=== PATIENT | male | born 1955 | race Caucasian/White ===

== ENCOUNTER 2024-04-30 20:22 | Inpatient (IN) | payer MEDICARE ==
[~2024-04-30] VITALS: Ht 167.6 cm; Wt 59.9 kg
[2024-04-30] MEDS ORDERED: methylPREDNISolone SOD SUCC 125 MG/2ML VIAL ONE (20:34)
[2024-04-30] MEDS ORDERED: FUROSEMIDE 40 MG/4 ML VIAL ONE (20:34)
[2024-04-30] MEDS ORDERED: IPRATROPIUM NEB FS 0.5 MG/2.5 ML AMPUL.NEB ONE (20:41)
[2024-04-30] MEDS ORDERED: ALBUTEROL FS 2.5 MG/3 ML VIAL.NEB ONE (20:41)
[2024-04-30 20:43] LABS: BASOPHILS # (AUTO) 0.1 K/uL (0.0-0.2); BASOPHILS % (AUTO) 0.5 % (0.0-2.0); EOSINOPHILS # (AUTO) 0.3 K/uL (0.0-0.7); EOSINOPHILS % (AUTO) 1.7 % (0.0-6.0); HEMATOCRIT 41 % (39-51); HEMOGLOBIN 13.3 g/dL (13.5-17.5); LYMPHOCYTES # (AUTO) 4.9 K/uL (0.8-4.8); LYMPHOCYTES % (AUTO) 28.1 % (20.0-44.0); MEAN CORPUSCULAR HEMOGLOBIN 30 PG (26.0-33.0); MEAN CORPUSCULAR HGB CONC 33 g/dl (31.0-36.0); MEAN CORPUSCULAR VOLUME 93 fL (80-96); MONOCYTES # (AUTO) 1.4 K/uL (0.1-1.30); MONOCYTES % (AUTO) 8.2 % (2.0-12.0); NEUTROPHILS # (AUTO) 10.7 K/uL (1.8-8.9); NEUTROPHILS % (AUTO) 61.5 % (43.0-81.0); PLATELET COUNT (AUTO) 261 K/uL (150-450); RED BLOOD CELL COUNT(AUTO) 4.38 MIL/uL (4.5-6.0); RED CELL DISTRIBUTION WIDTH 17.6 % (11.5-15.0); WHITE BLOOD COUNT (AUTO) 17.4 K/uL (4.3-11.0)
[2024-04-30] MEDS: ALBUTEROL FS 2.5 MG/3 ML VIAL.NEB CONTNEB ONE (20:48)
[2024-04-30] MEDS: IPRATROPIUM NEB FS 0.5 MG/2.5 ML AMPUL.NEB NEB ONE (20:48)
[2024-04-30] MEDS: methylPREDNISolone SOD SUCC 125 MG/2ML VIAL IV ONE (20:49)
[2024-04-30] MEDS: FUROSEMIDE 40 MG/4 ML VIAL IV ONE (20:50)
[2024-04-30 21:00] LABS: ALANINE AMINOTRANSFERASE 84 U/L (12-78); ALBUMIN 3.6 g/dL (3.4-5.0); ALKALINE PHOSPHATASE 158 U/L (46-116); ASPARTATE AMINOTRANSFERASE 45 U/L (15-37); BILIRUBIN,DIRECT 0.1 mg/dL (0.0-0.2); BILIRUBIN,TOTAL 0.4 mg/dL (0.2-1.0); CALCIUM, SERUM 9.7 mg/dL (8.5-10.1); CARBON DIOXIDE 29 mmol/L (21-32); CHLORIDE 101 mmol/L (98-107); CREATININE 1.1 mg/dL (0.6-1.3); GLUCOSE 147 mg/dL (74-106); POTASSIUM 4.7 mmol/L (3.5-5.1); SODIUM SERUM 137 mmol/L (136-145); TOTAL PROTEIN, SERUM 8.4 g/dL (6.4-8.2); UREA NITROGEN, BLOOD 16 mg/dL (7-18)
[2024-04-30] MEDS ORDERED: PROPOFOL 20 ML IV ONE (21:14)
[2024-04-30] MEDS: PROPOFOL 200 MG/20 ML VIAL IV ONE (21:26)
[2024-04-30] MEDS ORDERED: PIPERACI/TAZO 3.375GM/D5W 50ML PB IV ONE (21:41)
[2024-04-30] MEDS: PIPERACILLIN /TAZOBACTAM 3.375 G in IV D5W 50 ML IV ONE (21:45)
[2024-04-30 21:47] LABS: ABG BASE EXCESS -1.8 mmol/L (-2.0-3.0); ABG OXYGEN SATURATION 99.5 % (94.0-98.0); ABG PCO2 45.8 mmHg (35.0-48.0); ABG PH 7.341 (7.350-7.450); ABG PO2 406.4 mmHg (83.0-108.0); ABG TOTAL HEMOGLOBIN 13.1 G/dL (13.5-17.5); COHb 0.6 % (0.5-1.5); MetHb 0.1 % (0.0-1.5); O2Hb 98.8 % (94.0-97.0); SITE, ABG RIGHT RADIAL
[2024-04-30] MEDS ORDERED: FURO-144 PO (22:29)
[2024-04-30] MEDS ORDERED: MIDO5TAB4 PO (22:29)
[2024-04-30] MEDS ORDERED: CLOP75TA15 PO (22:29)
[2024-04-30] MEDS ORDERED: ASPI-1169 PO (22:29)
[2024-04-30] MEDS ORDERED: ROSU20TA2 PO (22:29)
[2024-04-30] MEDS ORDERED: TEMAZEPAM 15 MG CAPSULE PO PRN (22:30)
[2024-04-30] MEDS ORDERED: Z GUARD REMEDY 4 OZ OINT TP PRN (22:30)
[2024-04-30] MEDS ORDERED: ONDANSETRON HCL/PF 4 MG/2 ML VIAL IVP PRN (22:30)
[2024-04-30] MEDS ORDERED: IPRATROPIUM NEB FS 0.5 MG/2.5 ML AMPUL.NEB NEB PRN (22:30)
[2024-04-30] MEDS ORDERED: ALBUTEROL FS 2.5 MG/3 ML VIAL.NEB NEB PRN (22:30)
[2024-04-30] MEDS ORDERED: HYDROCODONE/APAP 5/325MG TABLET PO PRN (22:30)
[2024-04-30] MEDS ORDERED: MAG HYDROX/AL HYDROX/SIMETH 30 ML UDC PO PRN (22:30)
[2024-05-01] VITALS (9 sets, daily range): BP systolic 92–122; BP diastolic 62–80; TEMP 97.3–98.4; O2SAT 95–100
[2024-05-01] MEDS: methylPREDNISolone SOD SUCC 40 MG/ML VIAL IV SCH (05:22)
[2024-05-01 05:34] LABS: BASOPHILS % (AUTO) 0.1 % (0.0-2.0); CALCIUM, SERUM 9.3 mg/dL (8.5-10.1); EOSINOPHILS % (AUTO) 0.1 % (0.0-6.0); HEMATOCRIT 37 % (39-51); HEMOGLOBIN 12.4 g/dL (13.5-17.5); LYMPHOCYTES # (AUTO) 0.8 K/uL (0.8-4.8); LYMPHOCYTES % (AUTO) 11.3 % (20.0-44.0); MAGNESIUM 2.1 mg/dL (1.8-2.4); MEAN CORPUSCULAR HEMOGLOBIN 31 PG (26.0-33.0); MEAN CORPUSCULAR HGB CONC 34 g/dl (31.0-36.0); MEAN CORPUSCULAR VOLUME 92 fL (80-96); MONOCYTES # (AUTO) 0.1 K/uL (0.1-1.30); MONOCYTES % (AUTO) 1.2 % (2.0-12.0); NEUTROPHILS # (AUTO) 5.9 K/uL (1.8-8.9); NEUTROPHILS % (AUTO) 87.3 % (43.0-81.0); PHOSPHORUS 4.6 mg/dL (2.5-4.9); PLATELET COUNT (AUTO) 199 K/uL (150-450); POTASSIUM 3.8 mmol/L (3.5-5.1); RED BLOOD CELL COUNT(AUTO) 4.03 MIL/uL (4.5-6.0); RED CELL DISTRIBUTION WIDTH 16.7 % (11.5-15.0); WHITE BLOOD COUNT (AUTO) 6.8 K/uL (4.3-11.0)
[2024-05-01] MEDS: PANTOPRAZOLE 40 MG TABLET.DR PO SCH (08:22)
[2024-05-01] MEDS: ATORVASTATIN 40 MG TABLET PO SCH (08:22)
[2024-05-01] MEDS: FUROSEMIDE 40 MG TABLET PO SCH (08:22)
[2024-05-01] MEDS: MIDODRINE HCL (5MG) 5 MG TABLET PO SCH (08:22)
[2024-05-01] MEDS: CLOPIDOGREL BISULFATE 75 MG TABLET PO SCH (08:22)
[2024-05-01] MEDS: CEFEPIME 2 GM in IV D5W 100 ML IV SCH (08:23)
[2024-05-01] MEDS ORDERED: CEFEPIME 1 GM in IV D5W 50 ML IV SCH (09:00)
[2024-05-01] MEDS: ASPIRIN 81 MG TAB.CHEW PO SCH (21:26)
[2024-05-02] VITALS: BP 103/69; TEMP 98.4; O2SAT 97
[2024-05-02 04:00] VITALS: BP 96/61; TEMP 98.2; O2SAT 93
[2024-05-02 08:00] VITALS: BP 110/66; TEMP 97.9; O2SAT 97
[2024-05-02 12:00] VITALS: BP 106/66; TEMP 97.5; O2SAT 98
[2024-05-02 16:00] VITALS: BP 100/72; TEMP 98.2; O2SAT 98
[2024-05-02] MEDS: MAGNESIUM HYDROXIDE 30 ML UDC PO PRN (18:37)
[2024-05-02 20:00] VITALS: BP 118/79; TEMP 97.5; O2SAT 96
[2024-05-03] VITALS: BP 124/79; TEMP 97.9; O2SAT 99
[2024-05-03 04:00] VITALS: BP 109/62; TEMP 98.1; O2SAT 96
[2024-05-03 08:00] VITALS: BP 125/71; TEMP 97.6; O2SAT 99
[2024-05-03 12:00] VITALS: BP 120/65; TEMP 97.8; O2SAT 99
[2024-05-03 16:00] VITALS: BP 98/65; TEMP 97.8; O2SAT 97
[2024-05-03 20:00] VITALS: BP 120/76; TEMP 97.9; O2SAT 97
[2024-05-03] MEDS: TEMAZEPAM 15 MG CAPSULE PO PRN (22:24)
[2024-05-04] VITALS: BP 112/75; TEMP 97.7; O2SAT 97
[2024-05-04 04:00] VITALS: BP 125/79; TEMP 97.5; O2SAT 100
[2024-05-04 08:00] VITALS: BP 120/63; TEMP 98.3; O2SAT 97
[2024-05-04 12:00] VITALS: BP 124/66; TEMP 98.5; O2SAT 98
[2024-05-04 16:00] VITALS: BP 123/87; TEMP 98.6; O2SAT 96
[2024-05-04 20:00] VITALS: BP 115/75; TEMP 97.3; O2SAT 96
[2024-05-05] VITALS: BP 116/79; TEMP 97.3; O2SAT 96
[2024-05-05 04:00] VITALS: BP 133/78; TEMP 98.1
[2024-05-05 08:00] VITALS: BP 144/84; TEMP 98.1; O2SAT 97
[2024-05-05 12:00] VITALS: BP 132/76; TEMP 97.7; O2SAT 97
[2024-05-05 16:00] VITALS: BP 128/80; TEMP 97.7; O2SAT 96
[2024-05-05 20:00] VITALS: BP 133/80; TEMP 97.7; O2SAT 99
[2024-05-06] VITALS: BP 138/81; TEMP 97.7; O2SAT 96
[2024-05-06 04:00] VITALS: BP 136/86; TEMP 97.7; O2SAT 96
[2024-05-06 08:00] VITALS: BP 139/89; TEMP 97.5; O2SAT 96
[2024-05-06 12:00] VITALS: BP 118/78; TEMP 97.5; O2SAT 97
[2024-05-06 16:00] VITALS: BP 131/86; TEMP 97.5; O2SAT 97
[2024-05-06 20:00] VITALS: BP 131/82; TEMP 98.1; O2SAT 96
[2024-05-07] VITALS: BP 130/81; TEMP 97.7; O2SAT 97
[2024-05-07 04:00] VITALS: BP 125/79; TEMP 98.1; O2SAT 96
[2024-05-07 08:00] VITALS: BP 133/87; TEMP 98.1; O2SAT 97
[2024-05-07 12:00] VITALS: BP 123/81; TEMP 98.1; O2SAT 97
[2024-05-07 16:00] VITALS: BP 124/86; TEMP 97.9; O2SAT 97
[2024-05-07 20:00] VITALS: BP 125/88; TEMP 98.6; O2SAT 95
[2024-05-08] VITALS: BP 137/85; TEMP 98.6; O2SAT 97
[2024-05-08 04:00] VITALS: BP 122/78; TEMP 97.9; O2SAT 99
[2024-05-08 07:44] LABS: CALCIUM, SERUM 8.6 mg/dL (8.5-10.1); CREATININE 0.7 mg/dL (0.6-1.3); POTASSIUM 3.7 mmol/L (3.5-5.1)
[2024-05-08 08:00] VITALS: BP 131/83; TEMP 97.7; O2SAT 97
[2024-05-08 12:00] VITALS: BP 131/78; TEMP 97.9; O2SAT 97
[2024-05-08 16:00] VITALS: BP 126/73; TEMP 97.7; O2SAT 95
[2024-05-08 20:00] VITALS: BP 116/73; TEMP 98.6; O2SAT 97
[2024-05-09] VITALS: BP 121/81; TEMP 97.8; O2SAT 99
[2024-05-09 04:00] VITALS: BP 136/87; TEMP 97.9; O2SAT 98
[2024-05-09 07:48] LABS: HEMATOCRIT 36 % (39-51); HEMOGLOBIN 12.4 g/dL (13.5-17.5); LYMPHOCYTES # (AUTO) 0.6 K/uL (0.8-4.8); LYMPHOCYTES % (AUTO) 6.1 % (20.0-44.0); MEAN CORPUSCULAR HEMOGLOBIN 31 PG (26.0-33.0); MEAN CORPUSCULAR HGB CONC 34 g/dl (31.0-36.0); MEAN CORPUSCULAR VOLUME 93 fL (80-96); MONOCYTES # (AUTO) 0.3 K/uL (0.1-1.30); MONOCYTES % (AUTO) 2.9 % (2.0-12.0); NEUTROPHILS # (AUTO) 9.1 K/uL (1.8-8.9); PLATELET COUNT (AUTO) 197 K/uL (150-450); RED BLOOD CELL COUNT(AUTO) 3.93 MIL/uL (4.5-6.0); RED CELL DISTRIBUTION WIDTH 17.3 % (11.5-15.0); WHITE BLOOD COUNT (AUTO) 9.9 K/uL (4.3-11.0)
[2024-05-09 08:00] VITALS: BP 128/82; TEMP 97.7; O2SAT 96
[2024-05-09 08:11] LABS: CALCIUM, SERUM 8.4 mg/dL (8.5-10.1); CREATININE 0.7 mg/dL (0.6-1.3); POTASSIUM 3.7 mmol/L (3.5-5.1)
[2024-05-09 12:00] VITALS: BP 122/72; TEMP 97.9; O2SAT 97
[2024-05-09 16:00] VITALS: BP 145/79; TEMP 97.5; O2SAT 99
[2024-05-09 20:05] VITALS: BP 126/81; TEMP 97.7; O2SAT 95
[2024-05-10] VITALS: BP 124/80; TEMP 97.9; O2SAT 97
[2024-05-10 04:00] VITALS: BP 122/73; TEMP 97.9; O2SAT 96
[2024-05-10 08:00] VITALS: BP 133/80; TEMP 98.8; O2SAT 97
[2024-05-10 08:11] LABS: CALCIUM, SERUM 8.4 mg/dL (8.5-10.1); CREATININE 0.6 mg/dL (0.6-1.3); POTASSIUM 3.8 mmol/L (3.5-5.1)
[2024-05-10 08:14] LABS: BASOPHILS % (AUTO) 0.1 % (0.0-2.0); HEMATOCRIT 35 % (39-51); HEMOGLOBIN 12.4 g/dL (13.5-17.5); LYMPHOCYTES # (AUTO) 0.6 K/uL (0.8-4.8); LYMPHOCYTES % (AUTO) 5.3 % (20.0-44.0); MEAN CORPUSCULAR HEMOGLOBIN 33 PG (26.0-33.0); MEAN CORPUSCULAR HGB CONC 35 g/dl (31.0-36.0); MEAN CORPUSCULAR VOLUME 93 fL (80-96); MONOCYTES # (AUTO) 0.3 K/uL (0.1-1.30); NEUTROPHILS # (AUTO) 9.7 K/uL (1.8-8.9); NEUTROPHILS % (AUTO) 91.6 % (43.0-81.0); PLATELET COUNT (AUTO) 191 K/uL (150-450); RED BLOOD CELL COUNT(AUTO) 3.82 MIL/uL (4.5-6.0); RED CELL DISTRIBUTION WIDTH 17.8 % (11.5-15.0); WHITE BLOOD COUNT (AUTO) 10.6 K/uL (4.3-11.0)
[2024-05-10 12:00] VITALS: BP 139/80; TEMP 97.7; O2SAT 95
[2024-05-10 16:00] VITALS: BP 135/89; TEMP 97.9; O2SAT 95
[2024-05-10 20:00] VITALS: BP 127/77; TEMP 97.3; O2SAT 99
[2024-05-11] VITALS: BP 127/78; TEMP 98.1; O2SAT 96
[2024-05-11 04:00] VITALS: BP 133/89; TEMP 97.5; O2SAT 98
[2024-05-11 07:34] LABS: BASOPHILS % (AUTO) 0.1 % (0.0-2.0); HEMATOCRIT 36 % (39-51); HEMOGLOBIN 12.6 g/dL (13.5-17.5); LYMPHOCYTES # (AUTO) 0.5 K/uL (0.8-4.8); MEAN CORPUSCULAR HEMOGLOBIN 32 PG (26.0-33.0); MEAN CORPUSCULAR HGB CONC 35 g/dl (31.0-36.0); MEAN CORPUSCULAR VOLUME 92 fL (80-96); MONOCYTES # (AUTO) 0.3 K/uL (0.1-1.30); MONOCYTES % (AUTO) 2.9 % (2.0-12.0); NEUTROPHILS # (AUTO) 9.9 K/uL (1.8-8.9); PLATELET COUNT (AUTO) 195 K/uL (150-450); RED BLOOD CELL COUNT(AUTO) 3.88 MIL/uL (4.5-6.0); RED CELL DISTRIBUTION WIDTH 18.2 % (11.5-15.0); WHITE BLOOD COUNT (AUTO) 10.8 K/uL (4.3-11.0)
[2024-05-11 07:58] LABS: CALCIUM, SERUM 8.4 mg/dL (8.5-10.1); CREATININE 0.7 mg/dL (0.6-1.3); POTASSIUM 3.5 mmol/L (3.5-5.1)
[2024-05-11 08:00] VITALS: BP 143/89; TEMP 98.1; O2SAT 96
[2024-05-11 12:00] VITALS: BP 119/86; TEMP 98.1; O2SAT 96
[2024-05-11 16:00] VITALS: BP 131/86; TEMP 97.5; O2SAT 94
[2024-05-11 20:00] VITALS: BP 139/87; TEMP 97.8; O2SAT 96
[2024-05-12] VITALS: BP 134/86; TEMP 97.9; O2SAT 98
[2024-05-12 04:00] VITALS: BP 131/84; TEMP 97.9; O2SAT 100
[2024-05-12 08:00] VITALS: BP 139/93; TEMP 97.2; O2SAT 96
[2024-05-12 09:01] LABS: BASOPHILS % (AUTO) 0.2 % (0.0-2.0); HEMATOCRIT 37 % (39-51); HEMOGLOBIN 12.7 g/dL (13.5-17.5); LYMPHOCYTES # (AUTO) 0.5 K/uL (0.8-4.8); LYMPHOCYTES % (AUTO) 3.7 % (20.0-44.0); MEAN CORPUSCULAR HEMOGLOBIN 32 PG (26.0-33.0); MEAN CORPUSCULAR HGB CONC 34 g/dl (31.0-36.0); MEAN CORPUSCULAR VOLUME 94 fL (80-96); MONOCYTES # (AUTO) 0.3 K/uL (0.1-1.30); NEUTROPHILS # (AUTO) 11.8 K/uL (1.8-8.9); NEUTROPHILS % (AUTO) 94.1 % (43.0-81.0); PLATELET COUNT (AUTO) 196 K/uL (150-450); RED BLOOD CELL COUNT(AUTO) 3.99 MIL/uL (4.5-6.0); RED CELL DISTRIBUTION WIDTH 17.8 % (11.5-15.0); WHITE BLOOD COUNT (AUTO) 12.6 K/uL (4.3-11.0)
[2024-05-12 09:24] LABS: CALCIUM, SERUM 8.5 mg/dL (8.5-10.1); CREATININE 0.8 mg/dL (0.6-1.3); POTASSIUM 3.6 mmol/L (3.5-5.1)
[2024-05-12 12:00] VITALS: BP 126/81; TEMP 97.5; O2SAT 97
[2024-05-12 16:00] VITALS: BP 163/85; TEMP 97.6; O2SAT 96
[2024-05-12 20:00] VITALS: BP 142/85; TEMP 97.8; O2SAT 96
[2024-05-13] VITALS: BP 136/87; TEMP 98.2; O2SAT 95
[2024-05-13 04:00] VITALS: BP 106/81; TEMP 97.9; O2SAT 96
[2024-05-13 06:31] LABS: HEMATOCRIT 38 % (39-51); HEMOGLOBIN 12.7 g/dL (13.5-17.5); LYMPHOCYTES # (AUTO) 0.6 K/uL (0.8-4.8); LYMPHOCYTES % (AUTO) 4.1 % (20.0-44.0); MEAN CORPUSCULAR HEMOGLOBIN 31 PG (26.0-33.0); MEAN CORPUSCULAR HGB CONC 34 g/dl (31.0-36.0); MEAN CORPUSCULAR VOLUME 93 fL (80-96); MONOCYTES # (AUTO) 0.5 K/uL (0.1-1.30); MONOCYTES % (AUTO) 3.2 % (2.0-12.0); NEUTROPHILS # (AUTO) 13.3 K/uL (1.8-8.9); NEUTROPHILS % (AUTO) 92.7 % (43.0-81.0); PLATELET COUNT (AUTO) 186 K/uL (150-450); RED BLOOD CELL COUNT(AUTO) 4.05 MIL/uL (4.5-6.0); RED CELL DISTRIBUTION WIDTH 18.2 % (11.5-15.0); WHITE BLOOD COUNT (AUTO) 14.3 K/uL (4.3-11.0)
[2024-05-13 06:52] LABS: CALCIUM, SERUM 8.1 mg/dL (8.5-10.1); CREATININE 0.6 mg/dL (0.6-1.3); POTASSIUM 3.9 mmol/L (3.5-5.1)
[2024-05-13 08:00] VITALS: BP 106/81; TEMP 97.9; O2SAT 97
[2024-05-13] MEDS: ACETAMINOPHEN 325 MG TABLET PO PRN (09:36)
[2024-05-13 12:00] VITALS: BP 127/94; TEMP 98.1; O2SAT 95
[2024-05-13 16:00] VITALS: BP 124/91; TEMP 97.9; O2SAT 95
[2024-05-13 20:00] VITALS: BP 139/78; TEMP 98.1; O2SAT 94
[2024-05-14] VITALS: BP 132/91; TEMP 98.1; O2SAT 94
[2024-05-14 04:00] VITALS: BP 142/86; TEMP 98.4; O2SAT 93
[2024-05-14 08:00] VITALS: BP 140/89; TEMP 97.7; O2SAT 95
[2024-05-14 08:28] LABS: CALCIUM, SERUM 8.4 mg/dL (8.5-10.1); CREATININE 0.7 mg/dL (0.6-1.3); POTASSIUM 3.6 mmol/L (3.5-5.1)
[2024-05-14 08:46] LABS: BASOPHILS % (AUTO) 0.1 % (0.0-2.0); HEMATOCRIT 39 % (39-51); HEMOGLOBIN 12.8 g/dL (13.5-17.5); LYMPHOCYTES # (AUTO) 0.3 K/uL (0.8-4.8); MEAN CORPUSCULAR HEMOGLOBIN 31 PG (26.0-33.0); MEAN CORPUSCULAR HGB CONC 33 g/dl (31.0-36.0); MEAN CORPUSCULAR VOLUME 94 fL (80-96); MONOCYTES # (AUTO) 0.5 K/uL (0.1-1.30); MONOCYTES % (AUTO) 2.9 % (2.0-12.0); NEUTROPHILS # (AUTO) 15.5 K/uL (1.8-8.9); PLATELET COUNT (AUTO) 170 K/uL (150-450); RED CELL DISTRIBUTION WIDTH 18.4 % (11.5-15.0); WHITE BLOOD COUNT (AUTO) 16.3 K/uL (4.3-11.0)
[2024-05-14 12:00] VITALS: BP 135/89; TEMP 97.9; O2SAT 95
[2024-05-14 16:00] VITALS: BP 127/81; TEMP 97.5; O2SAT 94
[2024-05-14 20:00] VITALS: BP 121/72; TEMP 97.5; O2SAT 95
[2024-05-15] VITALS: BP 154/90; TEMP 97.7; O2SAT 93
[2024-05-15] MEDS ORDERED: methylPREDNISolone SOD SUCC 40 MG/ML VIAL IV SCH (01:00)
[2024-05-15 04:00] VITALS: BP 126/84; TEMP 98.6; O2SAT 93
[2024-05-15 07:58] LABS: BASOPHILS % (AUTO) 0.1 % (0.0-2.0); HEMATOCRIT 39 % (39-51); HEMOGLOBIN 13.3 g/dL (13.5-17.5); LYMPHOCYTES # (AUTO) 0.5 K/uL (0.8-4.8); LYMPHOCYTES % (AUTO) 2.7 % (20.0-44.0); MEAN CORPUSCULAR HEMOGLOBIN 32 PG (26.0-33.0); MEAN CORPUSCULAR HGB CONC 34 g/dl (31.0-36.0); MEAN CORPUSCULAR VOLUME 94 fL (80-96); MONOCYTES # (AUTO) 0.3 K/uL (0.1-1.30); MONOCYTES % (AUTO) 1.9 % (2.0-12.0); NEUTROPHILS # (AUTO) 16.3 K/uL (1.8-8.9); NEUTROPHILS % (AUTO) 95.3 % (43.0-81.0); PLATELET COUNT (AUTO) 165 K/uL (150-450); RED BLOOD CELL COUNT(AUTO) 4.19 MIL/uL (4.5-6.0); RED CELL DISTRIBUTION WIDTH 18.6 % (11.5-15.0); WHITE BLOOD COUNT (AUTO) 17.1 K/uL (4.3-11.0)
[2024-05-15 08:00] VITALS: BP 129/83; TEMP 98.1; O2SAT 93
[2024-05-15 08:10] LABS: CALCIUM, SERUM 8.3 mg/dL (8.5-10.1); CREATININE 0.5 mg/dL (0.6-1.3); POTASSIUM 3.8 mmol/L (3.5-5.1)
[2024-05-15 16:00] VITALS: BP 117/73; TEMP 97.6; O2SAT 93
[2024-05-16] VITALS: BP 122/83; TEMP 98.2; O2SAT 93
[2024-05-16] MEDS: methylPREDNISolone SOD SUCC 40 MG/ML VIAL IV SCH (00:58)
[2024-05-16 08:00] VITALS: BP 122/83; TEMP 98.2; O2SAT 93
[2024-05-16 08:40] VITALS: BP 120/85
[2024-05-16] MEDS ORDERED: methylPREDNISolone SOD SUCC 40 MG/ML VIAL IV SCH (14:00)
== END 2024-05-16 16:55 | disposition home health service (06) | DRG 196 ==
LOC: ER 20:24 → ICU 22:39 → TELE-TD 05-01 11:27 → TELE1 05-02 10:02 → MEDSG1 05-15 09:52
PROVIDERS: ADMIT Nurse Practitioner Acute Care; ATTEND Nurse Practitioner Acute Care
PROC: 5A09357 Assistance with Respiratory Ventilation, Less than 24 Consecutive Hours, Continuous Positive Airway Pressure (ICD-10-PCS; principal; 2024-04-30)
PROC: 0W9B30Z Drainage of Left Pleural Cavity with Drainage Device, Percutaneous Approach (ICD-10-PCS; 2024-04-30)
DX: J84.10 Pulmonary fibrosis, unspecified (principal); J15.9 Unspecified bacterial pneumonia; J96.21 Acute and chronic respiratory failure with hypoxia; J93.12 Secondary spontaneous pneumothorax; J44.0 Chronic obstructive pulmonary disease with (acute) lower respiratory infection; I50.32 Chronic diastolic (congestive) heart failure; J93.82 Other air leak; J43.9 Emphysema, unspecified; I25.10 Atherosclerotic heart disease of native coronary artery without angina pectoris; D63.8 Anemia in other chronic diseases classified elsewhere; Z87.891 Personal history of nicotine dependence; Z87.01 Personal history of pneumonia (recurrent); Z99.81 Dependence on supplemental oxygen; Z76.82 Awaiting organ transplant status; Z95.5 Presence of coronary angioplasty implant and graft; Z20.822 Contact with and (suspected) exposure to COVID-19; T38.0X5A Adverse effect of glucocorticoids and synthetic analogues, initial encounter; Y92.89 Other specified places as the place of occurrence of the external cause
CPT/HCPCS: 36415; 36600; 71045-TC; 71250-TC; 80048-TC; 80061-TC; 80076-TC; 82803-TC; 82962-TC; 83735-TC; 84100-TC; 84484-TC; 85025-TC; 87081-TC; 92526; 92611-TC; 97110-TC; 97112-TC; 97116-TC; 97530-TC; A4223; A6253; G0378; J0692; J1940; J2543; J2704; J2919; J7050; J7060

== ENCOUNTER 2024-05-20 13:22 | Inpatient (IN) | payer MEDICARE ==
[~2024-05-20] VITALS: Ht 170.2 cm; Wt 55.8 kg
[2024-05-20] VITALS (16 sets, daily range): BP systolic 91–138; BP diastolic 57–90; TEMP 97.8; O2SAT 87–100
[~2024-05-20 13:22] MED LIST: ASPI-1169 PO; CLOP75TA15 PO; FURO-144 PO; MIDO5TAB4 PO; ROSU20TA2 PO
[2024-05-20] MEDS ORDERED: methylPREDNISolone SOD SUCC 125 MG/2ML VIAL ONE (13:33)
[2024-05-20] MEDS ORDERED: Magnesium 1GM/D5W 100ML PREMIX 100 ML IV ONE ×2 (13:33→14:42)
[2024-05-20] MEDS ORDERED: ALBUTEROL FS 2.5 MG/3 ML VIAL.NEB ONE (13:35)
[2024-05-20] MEDS ORDERED: IPRATROPIUM NEB FS 0.5 MG/2.5 ML AMPUL.NEB ONE (13:35)
[2024-05-20] MEDS: IPRATROPIUM NEB FS 0.5 MG/2.5 ML AMPUL.NEB NEB ONE (13:41)
[2024-05-20] MEDS: ALBUTEROL FS 2.5 MG/3 ML VIAL.NEB NEB ONE (13:41)
[2024-05-20] MEDS: methylPREDNISolone SOD SUCC 125 MG/2ML VIAL IV ONE (13:42)
[2024-05-20] MEDS: Magnesium 1GM/D5W 100ML PREMIX 200 ML IV ONE (13:42)
[2024-05-20 13:57] LABS: BASOPHILS # (AUTO) 0.1 K/uL (0.0-0.2); BASOPHILS % (AUTO) 0.7 % (0.0-2.0); EOSINOPHILS # (AUTO) 0.3 K/uL (0.0-0.7); EOSINOPHILS % (AUTO) 2.2 % (0.0-6.0); HEMATOCRIT 39 % (39-51); HEMOGLOBIN 13.6 g/dL (13.5-17.5); LYMPHOCYTES % (AUTO) 17.3 % (20.0-44.0); MEAN CORPUSCULAR HEMOGLOBIN 33 PG (26.0-33.0); MEAN CORPUSCULAR HGB CONC 35 g/dl (31.0-36.0); MEAN CORPUSCULAR VOLUME 96 fL (80-96); MONOCYTES # (AUTO) 0.3 K/uL (0.1-1.30); MONOCYTES % (AUTO) 2.7 % (2.0-12.0); NEUTROPHILS % (AUTO) 77.1 % (43.0-81.0); PLATELET COUNT (AUTO) 106 K/uL (150-450); RED BLOOD CELL COUNT(AUTO) 4.09 MIL/uL (4.5-6.0); RED CELL DISTRIBUTION WIDTH 18.9 % (11.5-15.0); WHITE BLOOD COUNT (AUTO) 11.6 K/uL (4.3-11.0)
[2024-05-20 13:57] LABS: ABG BASE EXCESS 0.6 mmol/L (-2.0-3.0); ABG OXYGEN SATURATION 99.6 % (94.0-98.0); ABG PCO2 38.4 mmHg (35.0-48.0); ABG PH 7.428 (7.350-7.450); ABG PO2 471.2 mmHg (83.0-108.0); ABG TOTAL HEMOGLOBIN 13.6 G/dL (13.5-17.5); COHb 0.9 % (0.5-1.5); MetHb 0.3 % (0.0-1.5); O2Hb 98.4 % (94.0-97.0); SITE, ABG RIGHT RADIAL
[2024-05-20 13:59] LABS: CARBON DIOXIDE 26 mmol/L (21-32); CHLORIDE 100 mmol/L (98-107); CREATININE 0.8 mg/dL (0.6-1.3); GLUCOSE 122 mg/dL (74-106); POTASSIUM 3.9 mmol/L (3.5-5.1); SODIUM SERUM 134 mmol/L (136-145); UREA NITROGEN, BLOOD 12 mg/dL (7-18)
[2024-05-20 14:06] LABS: INR 1.02 (0.91-1.10); PARTIAL THROMBOPLASTIN TIME 27.3 SEC (24.3-34.3); PROTHROMBIN TIME 10.8 SECS (9.2-11.1)
[2024-05-20 14:11] LABS: NT-PRO BNP 606 pg/mL (0-125)
[2024-05-20] MEDS: FUROSEMIDE 40 MG/4 ML VIAL IV ONE (15:30)
[2024-05-20] MEDS ORDERED: FUROSEMIDE 40 MG/4 ML VIAL ONE (15:33)
[2024-05-20] MEDS ORDERED: ALBUTEROL FS 2.5 MG/3 ML VIAL.NEB NEB PRN (18:30)
[2024-05-20] MEDS ORDERED: HYDROCODONE/APAP 5/325MG TABLET PO PRN (18:30)
[2024-05-20] MEDS ORDERED: ONDANSETRON HCL/PF 4 MG/2 ML VIAL IVP PRN (18:30)
[2024-05-20] MEDS ORDERED: MAG HYDROX/AL HYDROX/SIMETH 30 ML UDC PO PRN (18:30)
[2024-05-20] MEDS ORDERED: Z GUARD REMEDY 4 OZ OINT TP PRN (18:30)
[2024-05-20] MEDS ORDERED: ACETAMINOPHEN 325 MG TABLET PO PRN (18:30)
[2024-05-20] MEDS ORDERED: MAGNESIUM HYDROXIDE 30 ML UDC PO PRN (18:30)
[2024-05-20] MEDS ORDERED: IPRATROPIUM NEB FS 0.5 MG/2.5 ML AMPUL.NEB NEB PRN (18:30)
[2024-05-20] MEDS: ASPIRIN 81 MG TAB.CHEW PO SCH (22:01)
[2024-05-20] MEDS: ATORVASTATIN 40 MG TABLET PO SCH (22:01)
[2024-05-20] MEDS: methylPREDNISolone SOD SUCC 40 MG/ML VIAL IV SCH (22:01)
[2024-05-20] MEDS: ENOXAPARIN SODIUM 40 MG/0.4 ML DISP.SYRIN SQ SCH (22:02)
[2024-05-21] VITALS (26 sets, daily range): BP systolic 104–143; BP diastolic 38–99; TEMP 97.4–98.3; O2SAT 94–99
[2024-05-21 04:36] LABS: BASOPHILS % (AUTO) 0.7 % (0.0-2.0); HEMATOCRIT 38 % (39-51); HEMOGLOBIN 12.7 g/dL (13.5-17.5); LYMPHOCYTES # (AUTO) 0.5 K/uL (0.8-4.8); LYMPHOCYTES % (AUTO) 8.3 % (20.0-44.0); MEAN CORPUSCULAR HEMOGLOBIN 32 PG (26.0-33.0); MEAN CORPUSCULAR HGB CONC 34 g/dl (31.0-36.0); MEAN CORPUSCULAR VOLUME 95 fL (80-96); MONOCYTES # (AUTO) 0.1 K/uL (0.1-1.30); MONOCYTES % (AUTO) 1.2 % (2.0-12.0); NEUTROPHILS # (AUTO) 5.4 K/uL (1.8-8.9); NEUTROPHILS % (AUTO) 89.8 % (43.0-81.0); PLATELET COUNT (AUTO) 92 K/uL (150-450); RED BLOOD CELL COUNT(AUTO) 3.98 MIL/uL (4.5-6.0); RED CELL DISTRIBUTION WIDTH 18.5 % (11.5-15.0); WHITE BLOOD COUNT (AUTO) 6.1 K/uL (4.3-11.0)
[2024-05-21 04:48] LABS: CALCIUM, SERUM 8.9 mg/dL (8.5-10.1); CREATININE 0.7 mg/dL (0.6-1.3); MAGNESIUM 2.6 mg/dL (1.8-2.4); PHOSPHORUS 3.6 mg/dL (2.5-4.9); POTASSIUM 3.9 mmol/L (3.5-5.1)
[2024-05-21 05:15] LABS: ANISOCYTOSIS 1+; BASOPHILS % (MANUAL) 0 % (0.0-2.0); EOSINOPHILS % (MANUAL) 0 % (0-4); LYMPHOCYTES % (MANUAL) 7 % (16-48); MONOCYTES % (MANUAL) 2 % (0-11.0); NEUTROPHILS % (MANUAL) 91 (42-76); PLATELET ESTIMATE DECREASED
[2024-05-21] MEDS: CLOPIDOGREL BISULFATE 75 MG TABLET PO SCH (08:48)
[2024-05-21] MEDS: PANTOPRAZOLE 40 MG TABLET.DR PO SCH (08:48)
[2024-05-21] MEDS: FUROSEMIDE 40 MG TABLET PO SCH (08:48)
[2024-05-21] MEDS: MIDODRINE HCL (5MG) 5 MG TABLET PO SCH (08:49)
[2024-05-21] MEDS: THERAHONEY GEL 1.5 OZ TUBE TP SCH (10:00)
[2024-05-21] MEDS: POTASSIUM CHLORIDE 20 MEQ TAB.PRT.SR PO SCH (11:04)
[2024-05-21] MEDS: FUROSEMIDE 20 MG/2 ML VIAL IV SCH (11:05)
[2024-05-21] MEDS: SILVER SULFADIAZINE CREAM 25 GM TUBE TP SCH (17:27)
[2024-05-22] VITALS (7 sets, daily range): BP systolic 118–135; BP diastolic 74–95; TEMP 97.3–98.1; O2SAT 94–97
[2024-05-22 07:44] LABS: BASOPHILS % (AUTO) 0.3 % (0.0-2.0); EOSINOPHILS % (AUTO) 0.1 % (0.0-6.0); HEMATOCRIT 37 % (39-51); HEMOGLOBIN 12.7 g/dL (13.5-17.5); LYMPHOCYTES # (AUTO) 0.4 K/uL (0.8-4.8); LYMPHOCYTES % (AUTO) 3.6 % (20.0-44.0); MEAN CORPUSCULAR HEMOGLOBIN 33 PG (26.0-33.0); MEAN CORPUSCULAR HGB CONC 35 g/dl (31.0-36.0); MEAN CORPUSCULAR VOLUME 95 fL (80-96); MONOCYTES # (AUTO) 0.2 K/uL (0.1-1.30); MONOCYTES % (AUTO) 1.7 % (2.0-12.0); NEUTROPHILS # (AUTO) 10.8 K/uL (1.8-8.9); NEUTROPHILS % (AUTO) 94.3 % (43.0-81.0); PLATELET COUNT (AUTO) 110 K/uL (150-450); RED BLOOD CELL COUNT(AUTO) 3.85 MIL/uL (4.5-6.0); RED CELL DISTRIBUTION WIDTH 18.3 % (11.5-15.0); WHITE BLOOD COUNT (AUTO) 11.5 K/uL (4.3-11.0)
[2024-05-22 08:06] LABS: ALBUMIN 2.8 g/dL (3.4-5.0); BILIRUBIN,TOTAL 0.5 mg/dL (0.2-1.0); CALCIUM, SERUM 8.9 mg/dL (8.5-10.1); CREATININE 0.7 mg/dL (0.6-1.3); MAGNESIUM 2.5 mg/dL (1.8-2.4); PHOSPHORUS 2.7 mg/dL (2.5-4.9); POTASSIUM 4.7 mmol/L (3.5-5.1); TOTAL PROTEIN, SERUM 6.9 g/dL (6.4-8.2)
[2024-05-22] MEDS: ZOLPIDEM TARTRATE 10 MG TABLET PO PRN (21:02)
[2024-05-23] VITALS: BP 131/76; TEMP 97.7; O2SAT 99
[2024-05-23 04:00] VITALS: BP 129/74; TEMP 97.5; O2SAT 97
[2024-05-23 08:00] VITALS: BP 130/56; TEMP 98.6; O2SAT 96
[2024-05-23 08:49] LABS: BASOPHILS % (AUTO) 0.1 % (0.0-2.0); HEMATOCRIT 36 % (39-51); HEMOGLOBIN 12.3 g/dL (13.5-17.5); LYMPHOCYTES # (AUTO) 0.5 K/uL (0.8-4.8); LYMPHOCYTES % (AUTO) 3.8 % (20.0-44.0); MEAN CORPUSCULAR HEMOGLOBIN 33 PG (26.0-33.0); MEAN CORPUSCULAR HGB CONC 34 g/dl (31.0-36.0); MEAN CORPUSCULAR VOLUME 95 fL (80-96); MONOCYTES # (AUTO) 0.2 K/uL (0.1-1.30); MONOCYTES % (AUTO) 1.7 % (2.0-12.0); NEUTROPHILS # (AUTO) 11.4 K/uL (1.8-8.9); NEUTROPHILS % (AUTO) 94.4 % (43.0-81.0); PLATELET COUNT (AUTO) 111 K/uL (150-450); RED BLOOD CELL COUNT(AUTO) 3.77 MIL/uL (4.5-6.0); RED CELL DISTRIBUTION WIDTH 18.5 % (11.5-15.0); WHITE BLOOD COUNT (AUTO) 12.1 K/uL (4.3-11.0)
[2024-05-23 09:03] LABS: CALCIUM, SERUM 8.7 mg/dL (8.5-10.1); CREATININE 0.6 mg/dL (0.6-1.3); MAGNESIUM 2.5 mg/dL (1.8-2.4); PHOSPHORUS 2.5 mg/dL (2.5-4.9); POTASSIUM 4.3 mmol/L (3.5-5.1)
[2024-05-23 12:00] VITALS: BP 116/81; TEMP 97.7; O2SAT 97
[2024-05-23 16:00] VITALS: BP 125/83; TEMP 97.7; O2SAT 97
[2024-05-23] MEDS: methylPREDNISolone SOD SUCC 40 MG/ML VIAL IV SCH (17:00)
[2024-05-23] MEDS ORDERED: methylPREDNISolone SOD SUCC 40 MG/ML VIAL IV SCH (17:00)
[2024-05-23 20:00] VITALS: BP 124/88; TEMP 97.9; O2SAT 98
[2024-05-24 04:00] VITALS: BP 120/74; TEMP 97.9; O2SAT 97
[2024-05-24] MEDS: methylPREDNISolone SOD SUCC 40 MG/ML VIAL IV SCH (09:00)
[2024-05-24 12:00] VITALS: BP 121/77
[2024-05-24 18:00] VITALS: BP 136/87; TEMP 97.9; O2SAT 98
[2024-05-24 20:00] VITALS: BP 129/85; TEMP 97; O2SAT 97
[2024-05-25 04:00] VITALS: BP 108/70; TEMP 97.9; O2SAT 97
[2024-05-25 08:00] VITALS: BP 114/74; TEMP 97.9; O2SAT 96
[2024-05-25 08:14] LABS: BASOPHILS % (AUTO) 0.1 % (0.0-2.0); EOSINOPHILS % (AUTO) 0.5 % (0.0-6.0); HEMATOCRIT 39 % (39-51); HEMOGLOBIN 12.9 g/dL (13.5-17.5); MEAN CORPUSCULAR HEMOGLOBIN 32 PG (26.0-33.0); MEAN CORPUSCULAR HGB CONC 34 g/dl (31.0-36.0); MEAN CORPUSCULAR VOLUME 96 fL (80-96); MONOCYTES # (AUTO) 0.2 K/uL (0.1-1.30); MONOCYTES % (AUTO) 2.4 % (2.0-12.0); NEUTROPHILS # (AUTO) 6.2 K/uL (1.8-8.9); PLATELET COUNT (AUTO) 112 K/uL (150-450); RED BLOOD CELL COUNT(AUTO) 4.05 MIL/uL (4.5-6.0); RED CELL DISTRIBUTION WIDTH 18.1 % (11.5-15.0); WHITE BLOOD COUNT (AUTO) 7.5 K/uL (4.3-11.0)
[2024-05-25 08:32] LABS: CALCIUM, SERUM 8.3 mg/dL (8.5-10.1); CREATININE 0.5 mg/dL (0.6-1.3); MAGNESIUM 2.2 mg/dL (1.8-2.4)
[2024-05-25 12:00] VITALS: BP 118/74; TEMP 97.8; O2SAT 96
[2024-05-25] MEDS: K PHOS NEUTRAL 250 MG TABLET PO ONE (16:47)
[2024-05-25 20:00] VITALS: BP 115/78; TEMP 97.3; O2SAT 97
[2024-05-26 04:00] VITALS: BP 115/72; TEMP 98.4; O2SAT 96
[2024-05-26] MEDS: predniSONE 20 MG TABLET PO SCH (12:07)
[2024-05-26 12:08] VITALS: BP 114/74; TEMP 97.9; O2SAT 96
[2024-05-26] MEDS ORDERED: PRED20TA PO (14:30)
[2024-05-26] MEDS ORDERED: PANT40TA49 PO (14:30)
[2024-05-26 16:41] VITALS: BP 103/66
== END 2024-05-26 19:38 | disposition home health service (06) | DRG 189 ==
LOC: ER 13:30 → ICU 17:04 → TELE-TD 05-21 23:37 → TELE1 05-22 09:36 → MEDSG1 05-23 13:49
PROVIDERS: ADMIT Nurse Practitioner Acute Care; ATTEND Nurse Practitioner Acute Care
PROC: 5A09357 Assistance with Respiratory Ventilation, Less than 24 Consecutive Hours, Continuous Positive Airway Pressure (ICD-10-PCS; principal; 2024-05-20)
DX: J96.21 Acute and chronic respiratory failure with hypoxia (principal); I50.32 Chronic diastolic (congestive) heart failure; D63.8 Anemia in other chronic diseases classified elsewhere; I25.10 Atherosclerotic heart disease of native coronary artery without angina pectoris; J84.10 Pulmonary fibrosis, unspecified; J96.22 Acute and chronic respiratory failure with hypercapnia; L85.3 Xerosis cutis; Z74.01 Bed confinement status; Z76.82 Awaiting organ transplant status; Z87.891 Personal history of nicotine dependence; Z98.61 Coronary angioplasty status; J43.9 Emphysema, unspecified; J44.9 Chronic obstructive pulmonary disease, unspecified; L89.322 Pressure ulcer of left buttock, stage 2; L89.312 Pressure ulcer of right buttock, stage 2; L89.150 Pressure ulcer of sacral region, unstageable; S30.820A Blister (nonthermal) of lower back and pelvis, initial encounter; X58.XXXA Exposure to other specified factors, initial encounter; Y93.9 Activity, unspecified; Y92.009 Unspecified place in unspecified non-institutional (private) residence as the place of occurrence of the external cause
CPT/HCPCS: 36415; 36600; 71045-TC; 80048-TC; 80053-TC; 82803-TC; 83735-TC; 83880; 84100-TC; 84484-TC; 85025-TC; 85730-TC; 87081-TC; 93307-TC; 94799-TC; 97110-TC; 97116-TC; 97530-TC; A4223; A6253; G0378; J1650; J1940; J2919; J3475; J7050